=== PATIENT | male | born 1955 | race Caucasian/White ===

== ENCOUNTER 2018-03-08 06:01 | Day surgery (SDC) | payer OTHER ==
[~2018-03-08] VITALS: Ht 177.8 cm; Wt 70.3 kg
[2018-03-08] VITALS (10 sets, daily range): BP systolic 102–129; BP diastolic 51–79
[2018-03-08] MEDS: Akten 3.5% 1ml Btl LEFT EYE SCH ×3 (06:28→06:50)
[2018-03-08] MEDS: Vigamox Opth Soln 3ml LEFT EYE SCH ×3 (06:28→06:48)
[2018-03-08] MEDS: Flurbiprofen 0.03% Opth Sol 2.5ml LEFT EYE SCH ×3 (06:28→06:48)
[2018-03-08] MEDS: Tropicamide 1% Opth 15ml Soln LEFT EYE SCH ×3 (06:28→06:48)
[2018-03-08] MEDS: Phenylephrine 2.5% Op 2ml Soln LEFT EYE SCH ×3 (06:28→06:48)
[2018-03-08] MEDS: Tobradex Opth Susp 2.5ml LEFT EYE SCH ×3 (06:28→06:48)
[2018-03-08 06:58] LABS: ANION GAP 6 mmol/L (5-15); BLOOD UREA NITROGEN 17 mg/dL (7-18); CALCIUM 9.2 MG/DL (8.5-10.1); CARBON DIOXIDE 31 MMOL/L (21-32); CHLORIDE 103 MMOL/L (98-107); POTASSIUM 4.3 MMOL/L (3.5-5.1); SODIUM 140 MMOL/L (136-145)
[2018-03-08] MEDS ORDERED: fentaNYL 100 mcg/2 mL IV ONE (07:05)
[2018-03-08] MEDS ORDERED: Midazolam 2mg/2ml Inj ONE (07:05)
[2018-03-08] MEDS ORDERED: Propofol 200mg/20ml IV ONE (07:10)
[2018-03-08] MEDS ORDERED: acetaZOLAMIDE 500mg Inj ONE (07:12)
[2018-03-08] MEDS ORDERED: Carbachol 0.01% Op Soln 1.5ml vial ONE (07:12)
[2018-03-08] MEDS ORDERED: EPINEPHrine 1mg/1ml Amp ONE (07:12)
[2018-03-08] MEDS ORDERED: Lidocaine 1% MPF 10mg/ml 5ml ONE (07:12)
[2018-03-08] MEDS ORDERED: BSS 500ml btl ONE (07:13)
[2018-03-08] MEDS ORDERED: BSS 15ml BTL ONE (07:13)
[2018-03-08] MEDS ORDERED: Sodium Hyaluronate 14 mg/ml 0.85ml ONE (07:13)
[2018-03-08] MEDS ORDERED: Povidone-Iodine 5% opth solution ONE (07:13)
[2018-03-08] MEDS ORDERED: Dexamethasone 4mg/ml vial ONE (07:13)
[2018-03-08] MEDS ORDERED: Sterile Water Irrig 1000ml IRRIG ONE (07:30)
[2018-03-08] MEDS ORDERED: LR 1000ml ONE (07:30)
[2018-03-08] MEDS ORDERED: NS Irrig 1000ml ONE (07:30)
[2018-03-08] MEDS ORDERED: FLONASE ALLERG9.9 ML NS (07:30)
--- NOTE | 2018-03-08 07:47 | Pre-Procedure Note/Attestation ---
Pre-Procedure Note/Attestation Complete Prior to Procedure Planned Procedure: left Procedure Narrative: cataract extraction with implant left eye Indications for Procedure Pre-Operative Diagnosis: cataract left eye Attestation I attest that I discussed the nature of the procedure; its benefits; risks and complications; and alternatives (and the risks and benefits of such alternatives ), prior to the procedure, with the patient (or the patient's legal solar sales representative and assessor). I attest that, if there was a reasonable possibility of needing a blood transfusion, the patient (or the patient's legal solar sales representative and assessor) was given the [facility] standardized written summary, pursuant to the Braydon Joselo Blood Safety Act ([place] [facility] and Safety Code # 1645, as amended). I attest that I re-evaluated the patient just prior to the surgery and that there has been no change in the patient's H&P, except as documented below: Des Matt MD Mar 08, 2018 07:47
[2018-03-08] MEDS ORDERED: LR 1000ml 1,000 ML IVLG SCH (08:01)
--- NOTE | 2018-03-08 08:01 | Anethesia Preoperative Eval ---
Anesthesia Pre-op PMH/ROS General Date of Evaluation: Mar 08, 2018 Time of Evaluation: 07:20 Anesthesiologist: Caitlin ASA Score: ASA 2 Mallampati Score Class I : Soft palate, uvula, fauces, pillars visible Class II: Soft palate, uvula, fauces visible Class III: Soft palate, base of uvula visible Class IV: Only hard plate visible Mallampati Classification: Class II Surgeon: Shaka Diagnosis: L eye cataract Surgical Procedure: L eye cataract extraction Anesthesia History: none Family History: no anesthesia problems Allergies: Coded Allergies: PENICILLINS (Verified Allergy, Mild, 03/08/18) RASH TAMSULOSIN (Verified Adverse Reaction, Unknown, 03/08/18) ELEVATED LFTs Medications: see eMAR Patient NPO?: Yes Past Medical History Cardiovascular: Denies: HTN, CAD, CA, valve dz, arrhythmia, other Pulmonary: Denies: asthma, COPD, TAJ, other Gastrointestinal/Genitourinary: Reports: GERD - mild; Denies: CRI, ESRD, other Neurologic/Psychiatric: Denies: dementia, CVA, depression/anxiety, TIA, other Endocrine: Denies: DM, hypothyroidism, steroids, other HEENT: Reports: cataract (L), cataract (R); Denies: glaucoma, [place] (L), [place] (R), other Hematology/Immune: Denies: anemia, DVT, bleeding disorder, other Musculoskeletal/Integumentary: Reports: OA; Denies: RA, DJD, DDD, edema, other PMH Narrative: as above PSxH Narrative: hernia repair, knee Sx Anesthesia Pre-op Phys. Exam Physician Exam Last Vital Signs Date Time Temp Pulse Resp B/P (MAP) Pulse Ox O2 Delivery O2 Flow Rate FiO2 03/08/18 06:44 97.1 54 18 103/73 99 Room Air Constitutional: NAD Neurologic: CN 2-12 intact Cardiovascular: RRR, no M/R/G Respiratory: CTA Gastrointestinal: S/NT/ND Airway Exam Mallampati Score: Class II MO: full Neck: flexible ROM: full Teeth: intact Dentures: no upper, no lower Anesthesia Pre-op A/P Labs Chemistry Test 03/08/18 06:25 Sodium Level 140 MMOL/L (136-145) Potassium Level 4.3 MMOL/L (3.5-5.1) Chloride Level 103 MMOL/L (98-107) Carbon Dioxide Level 31 MMOL/L (21-32) Anion Gap 6 mmol/L (5-15) Blood Urea Nitrogen 17 mg/dL (7-18) Creatinine 1.0 MG/DL (0.55-1.30) Estimat Glomerular Filtration Rate > 60 mL/min (>60) Glucose Level 95 MG/DL (74-106) Calcium Level 9.2 MG/DL (8.5-10.1) Risk Assessment & Plan Assessment: ASA 2 Plan: MAC Status Change Before Surgery: No Pre-Antibiotics Drug: none Armen Tucker MD Mar 08, 2018 08:01
--- NOTE | 2018-03-08 08:14 | Brief Operative Note ---
Immediate Post Operative Note Operative Note Pre-op Diagnosis: cataract left eye Procedure: phacoemulsification of cataract with implant left eye Post-op Diagnosis: same as pre-op Surgeon: des tai Vice President And Portfolio Manager: none Anesthesiologist: jared edge md Anesthesia: MAC Specimen: none Complications: none Condition: stable Fluids: none Estimated Blood Loss: none Drains: none Implant(s) used?: Yes Des Tai MD Mar 08, 2018 08:14
[2018-03-08] MEDS ORDERED: DiphenhydrAMINE 50mg/ml Inj IVP PRN (08:15)
[2018-03-08] MEDS ORDERED: fentaNYL 100 mcg/2 mL IV PRN (08:15)
--- NOTE | 2018-03-08 08:17 | Immediate Post-Op Evaluation ---
Immediate Post-Op Evalulation Immediate Post-Op Evalulation Procedure: L eye cataract extraction with IOL Date of Evaluation: Mar 08, 2018 Time of Evaluation: 08:16 IV Fluids: 200 Blood Products: none Estimated Blood Loss: none Urinary Output: none Blood Pressure Systolic: 116 Blood Pressure Diastolic: 78 Pulse Rate: 52 Respiratory Rate: 20 O2 Sat by Pulse Oximetry: 99 Temperature (Fahrenheit): 97.6 Pain Score (1-10): 1 Nausea: No Vomiting: No Complications none Patient Status: awake, patent, none Hydration Status: adequate Armen Tucker MD Mar 08, 2018 08:17
--- NOTE | 2018-03-08 08:56 | 48 Hour Post Anesthesia Eval ---
Post Anesthesia Evaluation Procedure: L eye cataract extraction with IOL Date of Evaluation: Mar 08, 2018 Time of Evaluation: 08:55 Blood Pressure Systolic: 104 0: 56 Pulse Rate: 52 Respiratory Rate: 20 Temperature (Fahrenheit): 97.6 O2 Sat by Pulse Oximetry: 98 Airway: patent Nausea: No Vomiting: No Pain Intensity: 1 Hydration Status: adequate Cardiopulmonary Status: stable Mental Status/LOC: patient returned to baseline Follow-up Care/Observations: n/a Post-Anesthesia Complications: none Follow-up care needed: ready to discharge Armen Tucker MD Mar 08, 2018 08:56
--- NOTE | 2018-03-08 15:45 | Operative Note - Dictated ---
DATE OF OPERATION: 03/08/2018 PREOPERATIVE DIAGNOSIS: Cataract, left eye. POSTOPERATIVE DIAGNOSIS: Cataract, left eye. PROCEDURE: Phacoemulsification of cataract left eye with placement of posterior chamber intraocular lens. SURGEON: Des Matt M.D. GUT CARRIER: None. ANESTHESIA: MAC/topical. ANESTHESIOLOGIST: Armen Tucker M.D. INDICATION FOR PROCEDURE: Poor vision, left eye. DESCRIPTION OF FINDINGS: Dense nuclear sclerotic cataract, left eye DESCRIPTION OF PROCEDURE: The patient received a topical anesthetic block consisting of 3.5% Akten eye drops. The eye was then prepped and draped in usual manner. A lid speculum was placed. An operating Zeiss microscope was positioned. The temporal corneal groove was made with the navjot blade. A SuperSharp blade made a stab incision at the 6 o'clock position. A 0.1 mL of 1% nonpreserved intracameral lidocaine was injected. Healon was instilled into the anterior chamber and a 2.5/2.8 mm trapezoidal navjot blade was used to complete the temporal corneal wound. A cystotome was used to create an anterior capsular flap. Utrata forceps were used to complete the capsulorrhexis. BSS on a cannula was used to hydrodissect the nucleus. The lens nucleus was phacoemulsified in a phaco-fracture technique. Remaining cortical material was removed with the I/A and the posterior capsule polished with the I/A on Cap vac. Healon was instilled into a capsular bag and anterior chamber and TECNIS foldable one-piece preloaded posterior chamber intraocular lens, model PCB00, power 21.0 diopter, serial #[id number] was placed into the capsular bag. The I/A tip was used to remove the Healon and position the lens. The wound edge was hydrated with BSS and a blunt-tipped cannula. The wound was checked and found to be watertight. The lid speculum was removed. A drop of TobraDex and Vigamox was placed. A clear plastic shield was taped over the eye. The patient tolerated the procedure well and left the operating room in good condition. Des Matt M.[place]. [place] [place]: Elsa JOB#: [id number] CC:
== END 2018-03-08 09:10 | disposition home or self-care (01) ==
LOC: SUR 06:01
DX: H25.12 Age-related nuclear cataract, left eye (principal); Z88.8 Allergy status to other drugs, medicaments and biological substances; Z85.46 Personal history of malignant neoplasm of prostate; Z88.0 Allergy status to penicillin; K21.9 Gastro-esophageal reflux disease without esophagitis; M19.90 Unspecified osteoarthritis, unspecified site
CPT/HCPCS: 36415; 66984; 80048; J0171; J1100; J2250; J2704; J3010; V2632; 94003; 94150